=== PATIENT | female | born 1965 | race Caucasian/White ===

== ENCOUNTER 2018-03-22 22:14 | Emergency (ER) | payer SELFPAY ==
[2018-03-22 22:24] VITALS: BMI 24.2
--- NOTE | 2018-03-22 22:58 | PDOC ---
Attending Attestation - HPI HPI: 03/22/18 23:44 The patient is a 52 year old female, with a significant PMH of cholecystectomy, abdominoplasty, who presents to the emergency department with 1 year of intermittent post operative hernia. The patient states she had a bowel movement 2 days ago which was painful prompting the ED visit tonight. The patient denies chest pain, shortness of breath, headache and dizziness. Denies fever, chills, nausea, vomit, diarrhea and constipation. Denies dysuria, frequency, urgency and hematuria. Allergies: codeine Documentation prepared by Miguel Harp, acting as medical records technician for Adilene Parr MD. - Physicial Exam PE: 03/22/18 23:45 GENERAL: Afebrile. Awake, alert, and fully oriented, in no acute distress HEAD: No signs of trauma EYES: PERRLA, EOMI, sclera anicteric, conjunctiva clear ENT: Auricles normal inspection, hearing grossly normal, nares patent, oropharynx clear without exudates. Moist mucosa NECK: Normal ROM, supple, no lymphadenopathy, JVD, or masses LUNGS: Breath sounds equal, clear to auscultation bilaterally. No wheezes, and no crackles HEART: Regular rate and rhythm, normal S1 and S2, no murmurs, rubs or gallops CHEST: (+) Bilateral breast scarring from breast reduction as well as lumpectomy. ABDOMEN: (+) Large diagonal scar on the RUQ. (+) Horizontal suprapubic scar. (+ ) Scarring at umbilicus. No rebound or guarding. No appreciable hernia. No masses. Soft, nontender, normoactive bowel sounds. EXTREMITIES: Normal range of motion, no edema. No clubbing or cyanosis. No cords, erythema, or tenderness NEUROLOGICAL: Cranial nerves II through XII grossly intact. Normal speech. SKIN: Warm, Dry, normal turgor, no rashes or lesions noted. <Miguel Harp - Last Filed: 03/22/18 23:48> - Resident Resident Name: Kyle Witt - ED Attending Attestation I have performed the following: I have examined & evaluated the patient, The case was reviewed & discussed with the resident, I agree w/resident's findings & plan - Medical Decision Making 03/22/18 23:20 Pt states that she has a postop hernia x 1 year ever since her cholecystectomy done in [facility] 03/23/18 22:52 Patient Name: JIMI PUENTES THIS IS A PRELIMINARY REPORT FROM [facility] DATE OF SERVICE: 2018-03-23 01:49:17 IMAGES: 474 EXAM: ABDOMEN \T\ PELVIS CT W/O CONTR HISTORY: Abdominal pain. Hernia. COMPARISON: None. FINDINGS: Lung bases are clear. Breast implants are noted. The visualized cardiac chambers are normal size and configuration. Status post cholecystectomy mild pneumobilia. Normal unenhanced pancreas, spleen, adrenal glands and kidneys. The stomach and small bowel bowel are normal. Distal liquid stool may indicate a diarrheal illness, without colonic wall thickening. There is no aortic aneurysm. There is no significant retroperitoneal lymphadenopathy. The appendix is normal. The uterus and adnexal structures are normal. Urinary bladder is unremarkable. There is no pelvic free fluid. No discrete pelvic lymphadenopathy is identified. Multiple bilateral gluteal subcutaneous injection granulomas are noted IMPRESSION: No hernia. Possible diarrheal illness Pt was hydrated and feeling better and she is stable for d/c home. <Adilene Parr - Last Filed: 03/23/18 22:58> Heart Score/ECG Review - ECG Intrepretation Rhythm: Regular Rhythm - [place]: Normal - P and OR Delta Wave(s) Present: No WPW: No - QRS Poor R Wave Progression: No Q Wave Present: No - ST and T Early Repolarization: No Non Specific ST-T Wave changes: No - ECG Impressions Normal ECG: Yes Non-specific ST Elevation: No Ischemic Changes: No Bradycardia: No <Adilene Parr - [place] Filed: 03/23/18 22:58>
[2018-03-22] MEDS ORDERED: ACETAMINOPHEN 1000 MG/100 ML VIAL (NON FORMULARY) IVPB ONE (23:10)
[2018-03-22] MEDS ORDERED: SODIUM CHLORIDE 1,000 ML IV STA (23:10)
[2018-03-22 23:47] LABS: BASO % 1.2 % (0-2.0); HEMOGLOBIN 13.4 GM/dL (10.7-15.3); LYMPH % 35.9 % (8-40); MCH 28.2 pg (25.7-33.7); MCHC 33.5 g/dl (32.0-36.0); MEAN CELL VOLUME 84.3 fl (80-96); MEAN PLT VOLUME 9.6 fl (7.5-11.1); MONO % 7.9 % (3.8-10.2); PLATELET COUNT 286 K/MM3 (134-434); RBC 4.74 M/mm3 (3.60-5.2); RDW 13.8 % (11.6-15.6); WHITE BLOOD COUNT 7.2 K/mm3 (4.0-10.0)
[2018-03-22 23:54] LABS: URINE APPEARANCE CLEAR; URINE BILIRUBIN NEGATIVE (<2.0 mg/dL); URINE COLOR STRAW; URINE GLUCOSE (UA) NEGATIVE (NEGATIVE); URINE KETONE NEGATIVE (NEGATIVE); URINE LEUK ESTERASE NEGATIVE (NEGATIVE); URINE NITRITE NEGATIVE (NEGATIVE); URINE PROTEIN NEGATIVE (NEGATIVE); URINE UROBILINOGEN NEGATIVE mg/dL (0.2-1.0)
[2018-03-23] MEDS ORDERED: ACETAMINOPHEN INJECTION 100 ML IVPB ONE (00:15)
[2018-03-23 00:16] LABS: ALBUMIN 3.5 g/dl (3.4-5.0); ALK PHOS 197 U/L (45-117); ANION GAP 5 MMOL/L (8-16); BILIRUBIN,TOTAL 0.4 mg/dL (0.2-1); BLOOD UREA NITROGEN 11 mg/dL (7-18); CALCIUM 8.8 mg/dL (8.5-10.1); CHLORIDE 108 mmol/L (98-107); CO2 27 mmol/L (21-32); CREATININE 0.7 mg/dL (0.55-1.3); GLUCOSE,RANDOM 94 mg/dL (74-106); LIPASE 139 U/L (73-393); POTASSIUM 3.9 mmol/L (3.5-5.1); SGOT/AST 38 U/L (15-37); SGPT/ALT 51 U/L (13-61); SODIUM 140 mmol/L (136-145); TOT PROT 7.1 g/dl (6.4-8.2)
--- NOTE | 2018-03-23 00:41 | PDOC ---
History of Present Illness - General Chief Complaint: Pain Stated Complaint: ABD PAIN Time Seen by Provider: 03/22/18 22:38 History Source: Patient Exam Limitations: Language Barrier - History of Present Illness Initial Comments: 03/23/18 00:38 Patient is a 52F with history of open cholecystectomy, mo byrnes here today complaining of an abdominal mass for the past year since her tummy tuck. Patient states that when she sits or strains to defecate a mass on the left side of her abdomen pops out. Endorses chronic constipation, last bowel movement two days ago but is coming in today because she had pain in her abdomen while defecating. Patient has not seen doctor as outpatient. Denies dysuria, fevers, chills, nausea, vomiting. Denies chest pain and shortness of breath. Past History - Past Medical History Allergies/Adverse Reactions: Allergies Allergy/AdvReac Type Severity Reaction Status Date / Time codeine Allergy Verified 03/22/18 22:21 Home Medications: Ambulatory Orders NK [No Known Home Medication] 03/23/18 Anemia: No Cardiac Disorders: No COPD: No CHF: No DVT: No Dementia: No Diabetes: No Disorders: No - Surgical History Cholecystectomy: Yes - Suicide/Smoking/Psychosocial Hx Smoking History: Never smoked Have you smoked in the past 12 months: No Information on smoking cessation initiated: No Hx Alcohol Use: No Drug/Substance Use Hx: No Review of Systems - Review of Systems Comments:: 03/23/18 00:41 GENERAL/CONSTITUTIONAL: No fever or chills. No weakness. HEAD, EYES, EARS, NOSE AND THROAT: No change in vision. No ear pain or discharge. No sore throat. CARDIOVASCULAR: No chest pain or shortness of breath RESPIRATORY: No cough, wheezing, or hemoptysis. GASTROINTESTINAL: No nausea, vomiting, diarrhea +constipation. GENITOURINARY: No dysuria, frequency, or change in urination. MUSCULOSKELETAL: No joint or muscle swelling or pain. No neck or back pain. SKIN: No rash NEUROLOGIC: No headache, vertigo, loss of consciousness, or change in strength/ sensation. ENDOCRINE: No increased thirst. No abnormal weight change HEMATOLOGIC/LYMPHATIC: No anemia, easy bleeding, or history of blood clots. ALLERGIC/IMMUNOLOGIC: No hives or skin allergy. *Physical Exam - Vital Signs Last Vital Signs Temp Pulse Resp BP Pulse Ox 97.6 F 58 L 20 124/90 100 03/22/18 22:22 03/22/18 22:22 03/22/18 22:22 03/22/18 22:22 03/22/18 22:22 - Physical Exam Comments: 03/23/18 00:45 GENERAL: Awake, alert, and fully oriented, in no acute distress HEAD: No signs of trauma, normocephalic, atraumatic EYES: PERRLA, EOMI, sclera anicteric, conjunctiva clear ENT: Auricles normal inspection, hearing grossly normal, nares patent, oropharynx clear without exudates. Moist mucosa NECK: Normal ROM, supple, no lymphadenopathy, JVD, or masses LUNGS: No distress, speaks full sentences, clear to auscultation bilaterally HEART: Regular rate and rhythm, normal S1 and S2, no murmurs, rubs or gallops, peripheral pulses normal and equal bilaterally. ABDOMEN: Soft, nontender, normoactive bowel sounds. No guarding, no rebound. No masses. Open dc and tummy tuck scars EXTREMITIES: Normal inspection, Normal range of motion, no edema. No clubbing or cyanosis. NEUROLOGICAL: Cranial nerves II through XII grossly intact. Normal speech, normal gait, no focal sensorimotor deficits SKIN: Warm, Dry, normal turgor, no rashes or lesions noted. Moderate Sedation - Procedure Monitoring Vital Signs: Procedure Monitoring Vital Signs Temperature 97.6 F 03/22/18 22:22 Pulse Rate 58 L 03/22/18 22:22 Respiratory Rate 20 03/22/18 22:22 Blood Pressure 124/90 03/22/18 22:22 O2 Sat by Pulse Oximetry (%) 100 03/22/18 22:22 ED Treatment Course - LABORATORY CBC & Chemistry Diagram: 03/22/18 23:40 03/22/18 23:40 - ADDITIONAL ORDERS Additional order review: Laboratory Results 03/22/18 03/22/18 03/22/18 23:40 23:40 23:20 Sodium 140 Potassium 3.9 Chloride 108 H Carbon Dioxide 27 Anion Gap 5 L BUN 11 Creatinine 0.7 Creat Clearance w eGFR > 60 Random Glucose 94 Calcium 8.8 Total Bilirubin 0.4 AST 38 H ALT 51 Alkaline Phosphatase 197 H Creatine Kinase 101 Troponin I < 0.02 Total Protein 7.1 Albumin 3.5 Lipase 139 Urine Color Straw Urine Appearance Clear Urine pH 6.0 Ur Specific [place] 1.004 L Urine Protein Negative Urine Glucose (UA) Negative Urine Ketones Negative Urine Blood Negative Urine Nitrite Negative Urine Bilirubin Negative Urine Urobilinogen Negative Ur Leukocyte Esterase Negative 03/22/18 23:40 RBC 4.74 MCV 84.3 MCHC 33.5 RDW 13.8 MPV 9.6 Neutrophils % 46.0 Lymphocytes % 35.9 Monocytes % 7.9 Eosinophils % 9.0 H Basophils % 1.2 - RADIOLOGY Radiology Studies Ordered: Category Date Time Status ABDOMEN & PELVIS CT W/O CONTR [CT] Stat CT Scan 03/22/18 23:21 Ordered - Medications Given in the ED: ED Medications Discontinued Medications Generic Name Dose Route Start Last Admin Trade Name Freq PRN Reason Stop Dose Admin Acetaminophen 1,000 mg 03/22/18 23:10 03/23/18 00:19 Ofirmev Injection - IVPB 03/22/18 23:11 1,000 mg ONCE ONE Administration Sodium Chloride 1,000 mls @ 1,000 mls/hr 03/22/18 23:10 03/22/18 23:56 Normal Saline - IV 03/23/18 00:09 1,000 mls/hr ASDIR STA Administration Medical Decision Making - Medical Decision Making 03/23/18 00:46 Patient is 52F with history of open dc and tummy tuck here today with complaint suggestive of hernia and abdominal pain. Will evaluate with abdominal labs, ct. Will treat with tylenol. 03/23/18 07:09 CBC, CMP, UA reassuring. CT shows no acute abnormalities. Nontender on re-examination. Discharged with return precautions. *DC/Admit/Observation/Transfer Diagnosis at time of Disposition: Abdominal pain - Discharge Dispostion Disposition: HOME Condition at time of disposition: Good Decision to Admit order: No - Referrals Referrals: Fito Schrader [Staff Physician] - - Patient Instructions Printed Discharge Instructions: DI for Abdominal Pain-Adult Additional Instructions: Please follow up with a surgeon regarding your abdominal pain. Please return if you have any new, worsening or concerning symptoms. Por favor luisito un seguimiento con un cirujano con respecto a jackson dolor abdominal. Por favor regrese si tiene sntomas nuevos, que empeoran o estn relacionados. - Post Discharge Activity
[2018-03-23 01:03] VITALS: BP 121/53; PULSE 62; TEMP 97.7
--- NOTE | 2018-03-23 12:59 | EKG ---
Test Reason : Blood Pressure : / mmHG Vent. Rate : 061 BPM Atrial Rate : 061 BPM P-R Int : 170 ms QRS Dur : 090 ms QT Int : 434 ms P-R-T Axes : 051 023 039 degrees QTc Int : 436 ms NORMAL SINUS RHYTHM NONSPECIFIC ST ABNORMALITY NO PREVIOUS ECGS AVAILABLE Confirmed by ESTHELA HEBERT MD ([id number]) on 03/23/2018 12:58:58 PM Referred By: Confirmed By:ESTHELA HEBERT MD
== END 2018-03-23 02:37 | disposition home or self-care (01) ==
LOC: JER 22:14
DX: K43.2 Incisional hernia without obstruction or gangrene (principal)
CPT/HCPCS: 36415; 74176-TC; 80053; 81003; 82550; 83690; 84484; 85025; 93005; 93010; 99282-25; J0131; J7030